=== PATIENT | male | born 1985 | race Caucasian/White ===

== ENCOUNTER 2020-12-27 09:20 | Emergency (ER) | payer BC, OTHER ==
[2020-12-27] MEDS ORDERED: Sodium Chloride 0.9% 10 ML Syringe FLUSH PRN (09:38)
--- NOTE | 2020-12-27 10:09 | CR ---
Chest: Portable view of the chest was obtained. Comparison: No prior chest imaging is available. Heart size and mediastinum are normal. Lungs are clear with no acute parenchymal change. No acute osseous abnormality is appreciated. Minimal scoliosis is incidentally noted. Impression: 1. Nothing acute is seen on portable chest x-ray. Diagnostic code #2
[2020-12-27 10:35] VITALS: BP 105/79; PULSE 63
--- NOTE | 2020-12-27 10:38 | EDM.PDOC ---
ED HPI GENERAL MEDICAL PROBLEM - General Chief Complaint: Chest Pain Stated Complaint: CHEST PAIN Time Seen by Provider: 12/27/20 09:24 Source of Information: Reports: Patient History Limitations: Reports: No Limitations - History of Present Illness INITIAL COMMENTS - FREE TEXT/NARRATIVE: The patient presents with left sided chest pain. He said it started this morning when he bent over at work. The pain is sharp and it comes and goes. He has no shortness of breath with it. He said this weekend he was lightheaded at times. He has a history of palpitations when he was younger. He has not had any problems for years. He has no fever, chills, cough, abdominal pain, nausea or vomiting. He does not smoke. When I went to see him, he was pale and diaphoretic but he just had an IV placed and he always has trouble with that. Onset: Sudden Duration: Hour(s): Location: Reports: Chest Quality: Reports: Sharp Severity: Mild Improves with: Reports: None Worsens with: Reports: None Associated Symptoms: Reports: Chest Pain. Denies: Cough, Fever/Chills, Headaches, Nausea/Vomiting, Shortness of Breath Left Chest Pain Score (Numeric/FACES): 3 - Related Data Allergies Allergy/AdvReac Type Severity Reaction Status Date / Time codeine Allergy Severe Cannot Verified 12/27/20 09:30 Remember morphine Allergy Severe Hives Verified 12/27/20 09:30 Penicillins Allergy Severe Cannot Verified 12/27/20 09:30 Remember Home Meds: Home Meds . [No Known Home Meds] 12/29/15 [History] Past Medical History Neurological History: Reports: Brain Injury - Past Surgical History HEENT Surgical History: Reports: Tonsillectomy Social & Family History - Family History Family Medical History: No Pertinent Family History - Tobacco Use Tobacco Use Status *Q: Never Tobacco User - Caffeine Use Caffeine Use: Reports: Coffee - Recreational Drug Use Recreational Drug Use: No - Living Situation & Occupation Living situation: Reports: , with Family Occupation: Employed ED ROS GENERAL - Review of Systems Review Of Systems: See Below Constitutional: Reports: No Symptoms HEENT: Reports: No Symptoms Respiratory: Reports: No Symptoms Cardiovascular: Reports: Chest Pain Endocrine: Reports: No Symptoms GI/Abdominal: Reports: No Symptoms : Reports: No Symptoms Musculoskeletal: Reports: No Symptoms ED EXAM, GENERAL - Physical Exam Exam: See Below Exam Limited By: No Limitations General Appearance: Alert, No Apparent Distress Ears: Normal External Exam Nose: Normal Inspection Head: Atraumatic, Normocephalic Neck: Normal Inspection Respiratory/Chest: No Respiratory Distress, Lungs Clear, Normal Breath Sounds Cardiovascular: Regular Rate, Rhythm, No Edema, No Murmur GI/Abdominal: Soft, Non-Tender, No Organomegaly, No Mass Back Exam: Normal Inspection Extremities: Normal Inspection #1 Interpretation EKG Date: 12/27/20 Time: 09:30 Rhythm: Other (sinus bradycardia) Rate (Beats/Min): 54 [place]: Normal P-Wave: Present QRS: Normal ST-T: Elevated (normal early repol) QT: Normal EKG Interpretation Comments: Wandering baseline #2 Interpretation EKG Date: 12/27/20 Time: 10:22 Rhythm: Other (sinus bradycardia) Rate (Beats/Min): 56 [place]: Normal P-Wave: Present QRS: Normal ST-T: Elevated (Normal early repol) QT: Normal Course - Vital Signs Last Recorded V/S: Last Vital Signs Temp 96.9 F 12/27/20 09:27 Pulse 63 12/27/20 10:34 Resp 18 12/27/20 10:34 BP 105/79 12/27/20 10:34 Pulse Ox 100 12/27/20 10:34 - Orders/Labs/Meds Orders: Active Orders 24 hr Category Date Time Status Cardiac Monitoring [RC] . DIRECTED Care 12/27/20 09:38 Active EKG 12 Lead [EKG Documentation Completion] [RC] ROUTINE Care 12/27/20 09:30 Active EKG Documentation Completion [RC] ASDIRECTED Care 12/27/20 10:21 Active Peripheral IV Care [RC] . DIRECTED Care 12/27/20 09:38 Active Sodium Chloride 0.9% [Saline Flush] Med 12/27/20 09:38 Active 10 ml FLUSH ASDIRECTED PRN Peripheral IV Insertion Adult [OM.PC] Stat Oth 12/27/20 09:38 Ordered EKG 12 Lead [EK] Stat Ther 12/27/20 10:20 Ordered Medication Orders Sodium Chloride (Sodium Chloride 0.9% 10 Ml Syringe) 10 ml FLUSH ASDIRECTED PRN PRN Reason: Keep Vein Open Last Admin: 12/27/20 09:45 Dose: 10 ml Documented by: [email or web address] Labs: Laboratory Tests 12/27/20 12/27/20 12/27/20 Range/Units 09:29 09:29 09:29 WBC 6.66 (4.23-9.07) K/mm3 RBC 4.94 (4.63-6.08) M/mm3 Hgb 14.6 (13.7-17.5) gm/dl Hct 45.0 (40.1-51.0) % MCV 91.1 (79.0-92.2) fl MCH 29.6 (25.7-32.2) pg MCHC 32.4 (32.2-35.5) g/dl RDW Std Deviation 40.7 (35.1-43.9) fL Plt Count 262 (163-337) K/mm3 MPV 9.9 (9.4-12.3) fl Neut % (Auto) 50.8 (34.0-67.9) % Lymph % (Auto) 37.2 (21.8-53.1) % [place] % (Auto) 9.9 (5.3-12.2) % Eos % (Auto) 1.8 (0.8-7.0) Baso % (Auto) 0.3 (0.1-1.2) % Neut # (Auto) 3.38 (1.78-5.38) K/mm3 Lymph # (Auto) 2.48 (1.32-3.57) K/mm3 [place] # (Auto) 0.66 (0.30-0.82) K/mm3 Eos # (Auto) 0.12 (0.04-0.54) K/mm3 Baso # (Auto) 0.02 (0.01-0.08) K/mm3 D-Dimer, Quantitative 0.23 (0.19-0.50) mg/L Sodium 140 (136-145) mEq/L Potassium 3.4 L (3.5-5.1) mEq/L Chloride 103 (98-107) mEq/L Carbon Dioxide 27 (21-32) mEq/L Anion Gap 13.4 (5-15) BUN 10 (7-18) mg/dL Creatinine 0.9 (0.7-1.3) mg/dL Est Cr Clr Drug Dosing 100.33 mL/min Estimated GFR (MDRD) > 60 (>60) mL/min BUN/Creatinine Ratio 11.1 L (14-18) Glucose 89 (70-99) mg/dL Calcium 8.6 (8.5-10.1) mg/dL Total Bilirubin 0.4 (0.2-1.0) mg/dL AST 15 (15-37) U/L ALT 24 (16-63) U/L Alkaline Phosphatase 56 (46-116) U/L Troponin I < 0.017 (0.00-0.056) ng/mL Total Protein 7.6 (6.4-8.2) g/dl Albumin 4.0 (3.4-5.0) g/dl Globulin 3.6 gm/dL Albumin/Globulin Ratio 1.1 (1-2) Meds: Medications Generic Name Dose Route Start Last Admin Trade Name Freq PRN Reason Stop Dose Admin Sodium Chloride 10 ml 12/27/20 09:38 12/27/20 09:45 Sodium Chloride 0.9% 10 Ml Syringe FLUSH 10 ml ASDIRECTED PRN Administration Keep Vein Open - Re-Assessments/Exams Free Text/Narrative Re-Assessment/Exam: 12/27/20 10:40 I ordered an IV saline lock, EKG, CXR and labs. His EKG shows a sinus bradycardia with normal early repol but nothing acute. His CXR looks good. All of his labs look good. 12/27/20 11:27 I feel this was pleurisy. I will discharge him home. Departure - Departure Time of Disposition: 11:30 Disposition: Home, Self-Care 01 Condition: Good Clinical Impression: Atypical chest pain, Pleurisy Referrals: Kenn Cordero PA-C [Primary Care Provider] - 1 Week Forms: ED Department Discharge Additional Instructions: Drink plenty of fluids. Take tylenol or motrin for pain. Follow up with Kenn Cordero. Please return if you are worse. Sepsis Event Note (ED) - Evaluation Sepsis Screening Result: No Definite Risk - Focused Exam Vital Signs: Vital Signs Temp Pulse Resp BP Pulse Ox 12/27/20 10:34 63 18 105/79 100 12/27/20 09:27 96.9 F 86 18 122/97 H 100 - My Orders Last 24 Hours: My Active Orders 12/27/20 09:30 EKG 12 Lead [EKG Documentation Completion] [RC] ROUTINE 12/27/20 09:38 Cardiac Monitoring [RC] . DIRECTED Peripheral IV Care [RC] . DIRECTED Sodium Chloride 0.9% [Saline Flush] 10 ml FLUSH ASDIRECTED PRN Peripheral IV Insertion Adult [OM.PC] Stat 12/27/20 10:20 EKG 12 Lead [EK] Stat 12/27/20 10:21 EKG Documentation Completion [RC] ASDIRECTED - Assessment/Plan Last 24 Hours: My Active Orders 12/27/20 09:30 EKG 12 Lead [EKG Documentation Completion] [RC] ROUTINE 12/27/20 09:38 Cardiac Monitoring [RC] . DIRECTED Peripheral IV Care [RC] . DIRECTED Sodium Chloride 0.9% [Saline Flush] 10 ml FLUSH ASDIRECTED PRN Peripheral IV Insertion Adult [OM.PC] Stat 12/27/20 10:20 EKG 12 Lead [EK] Stat 12/27/20 10:21 EKG Documentation Completion [RC] ASDIRECTED
== END 2020-12-27 11:38 | disposition home or self-care (01) ==
LOC: JD.ED 09:20
DX: R09.1 Pleurisy (principal); R00.1 Bradycardia, unspecified; Z88.5 Allergy status to narcotic agent; Z88.0 Allergy status to penicillin
CPT/HCPCS: 36415; 71045; 71045-26; 80053; 84484; 85025; 85379; 93005; 93010; 99284; 99285-25

== ENCOUNTER 2022-04-16 13:56 | Emergency (ER) | payer OTHER ==
[2022-04-16] MEDS ORDERED: Lidocaine 1% 10 ML MDV INJECT ONE (14:22)
[2022-04-16 14:27] VITALS: BP 99/61; PULSE 62
== END 2022-04-16 15:45 | disposition home or self-care (01) ==
LOC: JD.ED 13:56
DX: S61.412A Laceration without foreign body of left hand, initial encounter (principal); Z88.5 Allergy status to narcotic agent; Z88.0 Allergy status to penicillin; Z86.16 Personal history of COVID-19; W29.8XXA Contact with other powered hand tools and household machinery, initial encounter; Y99.0 Civilian activity done for income or pay
CPT/HCPCS: 12001; 99282